=== PATIENT | male | born 1995 | race American Indian/Alaskan Native ===

== ENCOUNTER 2019-01-04 20:13 | Emergency (ER) | payer SELFPAY ==
[2019-01-04 20:56] VITALS: BP 144/96
--- NOTE | 2019-01-04 21:17 | Emergency Department Report ---
Blank Doc - Documentation Documentation: 23-year-old male that presents with lower back pains after playing basketball. This initial assessment/diagnostic orders/clinical plan/treatment(s) is/are subject to change based on patient's health status, clinical progression and re- assessment by fellow clinical providers in the ED. Further treatment and workup at subsequent clinical providers discretion. Patient/guardians urged not to elope from the ED as their condition may be serious if not clinically assessed and managed. Initial orders include: 1- Patient sent to [facility] for further evaluation and treatment 2- xrays
--- NOTE | 2019-01-04 22:25 | XRay Report ---
LUMBAR SPINE 3 VIEWS INDICATION: low back pain COMPARISON: None. FINDINGS: There is no fracture, subluxation, or other acute radiographic abnormality of the lumbar spine. Disc space heights are maintained. Signer Name: Chris Carrera MD Signed: 01/04/2019 10:21 PM Workstation Name: [id number]
--- NOTE | 2019-01-04 23:04 | Emergency Department Report ---
ED General Adult HPI - General Chief complaint: Back Pain/Injury Stated complaint: SEVERE BACK PAIN Time Seen by Provider: 01/04/19 21:17 Source: patient Mode of arrival: Ambulatory Limitations: No Limitations - History of Present Illness Initial comments: Patient is a 23-year-old [place] male who states that he suffered an injury to his back days ago. Patient states that he was at the gym playing basketball and slipped and fell. Patient states he has pain with movement. Patient states is at baseline achy pain that occasionally is sharp in nature depending on how he moves. At worst the pain is a 7 out of 10. He denies any bowel or bladder dysfunction. He is able to walk. - Related Data Previous Rx's Medication Instructions Recorded Last Taken Type Nitrofurantoin Monohyd/M-Cryst 100 mg PO BID #14 capsule 01/28/18 Unknown Rx [Macrobid 100 mg Capsule] Ibuprofen [Motrin 800 MG tab] 800 mg PO Q8HR PRN #10 tablet 01/04/19 Unknown Rx methOCARBAMOL [Robaxin TAB] 500 mg PO Q6H PRN #14 tablet 01/04/19 Unknown Rx traMADol [Ultram] 50 mg PO Q6HR PRN #12 tablet 01/04/19 Unknown Rx Allergies Allergy/AdvReac Type Severity Reaction Status Date / Time No Known Allergies Allergy Verified 01/28/18 22:21 ED Review of Systems ROS: Stated complaint: SEVERE BACK PAIN Other details as noted in HPI Comment: All other systems reviewed and negative ED Past Medical Hx - Past Medical History Previous Medical History?: No - Surgical History Past Surgical History?: No - Social History Smoking Status: Current Some Day Smoker - Medications Home Medications: Home Medications Medication Instructions Recorded Confirmed Last Taken Type Nitrofurantoin Monohyd/M-Cryst 100 mg PO BID #14 capsule 01/28/18 Unknown Rx [Macrobid 100 mg Capsule] Ibuprofen [Motrin 800 MG tab] 800 mg PO Q8HR PRN #10 tablet 01/04/19 Unknown Rx methOCARBAMOL [Robaxin TAB] 500 mg PO Q6H PRN #14 tablet 01/04/19 Unknown Rx traMADol [Ultram] 50 mg PO Q6HR PRN #12 tablet 01/04/19 Unknown Rx ED Physical Exam - General Limitations: No Limitations General appearance: alert, in no apparent distress - Head Head exam: Present: atraumatic, normocephalic - Eye Eye exam: Present: normal appearance - ENT ENT exam: Present: mucous membranes moist - Neck Neck exam: Present: normal inspection - Respiratory Respiratory exam: Absent: respiratory distress - Rectal Rectal exam: Present: deferred - Extremities Exam Extremities exam: Present: normal inspection - Back Exam Back exam: Present: normal inspection, vertebral tenderness (lumbar) - Neurological Exam Neurological exam: Present: alert, oriented X3 - Psychiatric Psychiatric exam: Present: normal affect, normal mood - Skin Skin exam: Present: warm, dry, intact, normal color. Absent: rash ED Course Vital Signs 01/04/19 20:39 Temperature 98.6 F Pulse Rate 59 L Respiratory 12 Rate Blood Pressure 144/96 O2 Sat by Pulse 100 Oximetry ED Medical Decision Making - Radiology Data X-ray lumbar spine shows no acute bony injury. - Medical Decision Making Patient is a 23-year-old -[place] male who suffered injury to his lower back 2 days ago. X-rays negative for acute fracture. Patient be discharged home with medications for symptomatic relief. Critical care attestation.: If time is entered above; I have spent that time in minutes in the direct care of this critically ill patient, excluding procedure time. ED Disposition Clinical Impression: Lumbar strain Qualifiers: Encounter type: initial encounter Qualified Code(s): S39.012A - Strain of muscle, fascia and tendon of lower back, initial encounter Disposition: - TO HOME OR SELFCARE Is pt being admited?: No Does the pt Need Aspirin: No Condition: Stable Instructions: Low Back Strain (ED), Muscle Strain (ED) Referrals: NEERAJ TATE MD [Staff Physician] - as needed Time of Disposition: 23:02
== END 2019-01-04 23:43 | disposition home or self-care (01) ==
LOC: ED 20:13
DX: S39.012A Strain of muscle, fascia and tendon of lower back, initial encounter (principal); F17.200 Nicotine dependence, unspecified, uncomplicated; Z79.899 Other long term (current) drug therapy; W01.0XXA Fall on same level from slipping, tripping and stumbling without subsequent striking against object, initial encounter; Y93.89 Activity, other specified; Y92.89 Other specified places as the place of occurrence of the external cause; Y99.8 Other external cause status
CPT/HCPCS: 72100